=== PATIENT | female | born 1965 | race Caucasian/White ===

== ENCOUNTER 2018-03-05 21:57 | Emergency (ER) | payer BC, OTHER | END 2018-03-06 02:31 | disposition home or self-care (01) | LOC: FTE 03-06 02:31 | DX: S06.0X0A Concussion without loss of consciousness, initial encounter (principal); S10.93XA Contusion of unspecified part of neck, initial encounter; S40.011A Contusion of right shoulder, initial encounter; S40.012A Contusion of left shoulder, initial encounter; S60.211A Contusion of right wrist, initial encounter; I10 Essential (primary) hypertension; E11.9 Type 2 diabetes mellitus without complications; R07.9 Chest pain, unspecified; Y09 Assault by unspecified means; Y92.009 Unspecified place in unspecified non-institutional (private) residence as the place of occurrence of the external cause | CPT/HCPCS: 70450; 70486; 71046; 72125; 81025; 99285-25 ==

== ENCOUNTER 2018-06-29 16:22 | Emergency (ER) | payer BC ==
[2018-06-29] MEDS: KETOROLAC 30 MG INJ IM (17:28)
== END 2018-06-29 18:56 | disposition home or self-care (01) ==
LOC: FTE 16:22
DX: R51 Headache (principal); I10 Essential (primary) hypertension; E11.9 Type 2 diabetes mellitus without complications; Z79.84 Long term (current) use of oral hypoglycemic drugs
CPT/HCPCS: 70450; 81025; 82962; 96372; 99285-25

== ENCOUNTER 2018-07-26 08:34 | Emergency (ER) | payer BC ==
[2018-07-26] MEDS: SOD CHLORIDE 0.9% 1,000 ML IV (09:05)
[2018-07-26 09:12] LABS: ADD MAN DIFF? NO
[2018-07-26 09:13] LABS: BASOPHILS % 0.7 % (0.0-2.0); EOSINOPHILS # 0.1 10^3/ul (0.0-0.5); EOSINOPHILS % 1.8 % (0.0-7.0); HEMATOCRIT 38.8 % (37.0-47.0); HEMOGLOBIN 13.3 g/dl (12.0-16.0); LYMPHOCYTES # 1.9 10^3/ul (0.8-2.9); LYMPHOCYTES % 34.8 % (15.0-51.0); MEAN CORPUSCULAR HEMOGLOBIN 30.4 pg (29.0-33.0); MEAN CORPUSCULAR HGB CONC 34.3 g/dl (32.0-37.0); MEAN CORPUSCULAR VOLUME 88.6 fl (82.0-101.0); MEAN PLATELET VOLUME 11.4 fl (7.4-10.4); MONOCYTE # 0.4 10^3/ul (0.3-0.9); NEUTROPHILS % 54.3 % (39.0-77.0); PLATELET COUNT 220 10^3/UL (140-415); RED BLOOD COUNT 4.38 10^6/ul (4.20-5.40)
[2018-07-26 09:13] LABS: WHITE BLOOD COUNT 5.5 10^3/ul (4.8-10.8)
[2018-07-26 09:18] LABS: ADD UMIC YES; UR ASCORBIC ACID NEGATIVE (NEGATIVE); UR BILIRUBIN (Dip) NEGATIVE (NEGATIVE); UR BLOOD (Dip) 1+ mg/dL (NEGATIVE); UR CLARITY CLEAR (CLEAR); UR COLOR YELLOW (YELLOW); UR GLUCOSE (Dip) 3+ mg/dL (NEGATIVE); UR KETONES (Dip) TRACE mg/dL (NEGATIVE); UR LEUKOCYTE ESTERASE (Dip) NEGATIVE Leu/ul (NEGATIVE); UR NITRITE (Dip) NEGATIVE (NEGATIVE); UR RBC 2 /HPF (0-5); UR SPECIFIC GRAVITY (Dip) 1.032 (1.003-1.030); UR SQUAMOUS EPITHELIAL CELL FEW /HPF (FEW); UR TOTAL PROTEIN (Dip) NEGATIVE (NEGATIVE); UR UROBILINOGEN (Dip) NEGATIVE (NEGATIVE); UR WBC 8 /HPF (0-5)
[2018-07-26 09:40] LABS: ANION GAP 14 (8-16); BLOOD UREA NITROGEN 12 mg/dl (7-20); CALCIUM 9.2 mg/dl (8.4-10.2); CARBON DIOXIDE 25 mmol/L (21-31); CHLORIDE 101 mmol/L (97-110); CREATININE 0.61 mg/dl (0.44-1.00); GLUCOSE 325 mg/dl (70-220); SODIUM 136 mmol/L (135-144)
[2018-07-26] MEDS: INSULIN ASPART [NOVOLOG] 3 ML PEN SC (10:56)
[2018-07-26 11:02] LABS: TROPONIN-I < 0.012 ng/ml (0.000-0.120)
[2018-07-26] MEDS: IBUPROFEN 600 MG TAB PO (12:06)
== END 2018-07-26 12:31 | disposition home or self-care (01) ==
LOC: E/R 08:34
DX: E11.65 Type 2 diabetes mellitus with hyperglycemia (principal); R00.2 Palpitations; Z79.4 Long term (current) use of insulin
CPT/HCPCS: 36415; 80048; 81001; 82962; 84484; 85025; 93005; 96372; 99284-25

== ENCOUNTER 2018-12-28 23:17 | Emergency (ER) | payer SELFPAY, BC | END 2018-12-29 03:14 | disposition left against medical advice (07) | LOC: E/R 23:17 | DX: Z53.21 Procedure and treatment not carried out due to patient leaving prior to being seen by health care provider (principal) | CPT/HCPCS: 82962 ==

== ENCOUNTER 2019-03-03 11:33 | Emergency (ER) | payer BC ==
[2019-03-03] MEDS: LORAZEPAM 0.5 MG TAB PO (12:39)
[2019-03-03 13:26] LABS: TROPONIN-I < 0.012 ng/ml (0.000-0.120)
== END 2019-03-03 14:32 | disposition home or self-care (01) ==
LOC: E/R 11:33
DX: S16.1XXA Strain of muscle, fascia and tendon at neck level, initial encounter (principal); E11.9 Type 2 diabetes mellitus without complications; R07.9 Chest pain, unspecified; R51 Headache; Y04.0XXA Assault by unarmed brawl or fight, initial encounter; Z79.4 Long term (current) use of insulin
CPT/HCPCS: 36415; 70450; 71045; 72125; 84484; 93005; 99285-25

== ENCOUNTER 2019-04-06 10:50 | Observation (INO) | payer BC ==
[2019-04-06 11:26] LABS: ADD MAN DIFF? NO
[2019-04-06] MEDS: LORAZEPAM 0.5 MG TAB PO (11:29)
[2019-04-06 11:38] LABS: WHITE BLOOD COUNT 6.6 10^3/ul (4.8-10.8)
[2019-04-06 11:38] LABS: BASOPHILS % 0.6 % (0.0-2.0); EOSINOPHILS # 0.1 10^3/ul (0.0-0.5); EOSINOPHILS % 1.1 % (0.0-7.0); HEMATOCRIT 38.7 % (37.0-47.0); HEMOGLOBIN 13.5 g/dl (12.0-16.0); LYMPHOCYTES % 30.8 % (15.0-51.0); MEAN CORPUSCULAR HEMOGLOBIN 30.2 pg (29.0-33.0); MEAN CORPUSCULAR HGB CONC 34.9 g/dl (32.0-37.0); MEAN CORPUSCULAR VOLUME 86.6 fl (82.0-101.0); MEAN PLATELET VOLUME 11.2 fl (7.4-10.4); MONOCYTE # 0.5 10^3/ul (0.3-0.9); MONOCYTES % 7.1 % (0.0-11.0); NEUTROPHILS % 60.1 % (39.0-77.0); PLATELET COUNT 242 10^3/UL (140-415); RED BLOOD COUNT 4.47 10^6/ul (4.20-5.40); RED CELL DISTRIBUTION WIDTH 11.7 % (11.5-14.5)
[2019-04-06 11:57] LABS: ANION GAP 11 (5-13); BLOOD UREA NITROGEN 12 mg/dl (7-20); CALCIUM 8.8 mg/dl (8.4-10.2); CARBON DIOXIDE 25 mmol/L (21-31); CHLORIDE 98 mmol/L (97-110); CREATININE 0.64 mg/dl (0.44-1.00); Estimated GFR > 60 mL/min (>60); GLUCOSE 398 mg/dl (70-220); POTASSIUM 4.5 mmol/L (3.5-5.1); SODIUM 134 mmol/L (135-144)
[2019-04-06 12:09] LABS: TROPONIN-I < 0.012 ng/ml (0.000-0.120)
[2019-04-06] MEDS ORDERED: ONDANSETRON 4 MG INJ IV (13:30)
[2019-04-06] MEDS ORDERED: ACETAMINOPHEN 325 MG TAB PO (13:30)
[2019-04-06] MEDS ORDERED: ALBUTEROL/IPRATROPIUM (NEB) 3 ML AMP HHN (14:30)
[2019-04-06] MEDS ORDERED: NACL 0.9% 3 ML SYG IV (14:30)
[2019-04-06] MEDS ORDERED: morphine 2 MG INJ IV (14:30)
[2019-04-06] MEDS ORDERED: LORAZEPAM 2 MG INJ IV (14:30)
[2019-04-06] MEDS ORDERED: NITROGLYCERIN (SL) 0.4 MG TAB SL (14:30)
[2019-04-06] MEDS ORDERED: DEXTROSE 50% 50 ML SYRINGE IV ×3 (14:30→15:00)
[2019-04-06] MEDS ORDERED: hydrALAzine 20 MG INJ IV (14:30)
[2019-04-06 14:48] LABS: FREE T4 (FREE THYROXINE) 0.91 ng/dl (0.64-1.79)
[2019-04-06] MEDS ORDERED: GLUCOSE GEL 15 GRAM TUBE BUCCAL (15:00)
[2019-04-06] MEDS ORDERED: GLUCOSE GEL 15 GRAM TUBE PO ×2 (15:00)
[2019-04-06] MEDS ORDERED: GLUCAGON 1 MG INJ IM (15:00)
[2019-04-06] MEDS: INSULIN REGULAR, HUMAN 100 UNIT/1 ML 3ML VIAL IVP (15:06)
[2019-04-06] MEDS: SOD CHLORIDE 0.45% 1,000 ML IV (15:09)
[2019-04-06] MEDS: INSULIN REGULAR, HUMAN 100 UNIT/1 ML 3ML VIAL SC (15:12)
[2019-04-06 15:45] LABS: HEMOGLOBIN A1C 12.1 % (0-5.9)
[2019-04-06] MEDS: INSULIN ASPART [NOVOLOG] 3 ML PEN SC ×2 (16:43→21:00)
[2019-04-06 17:56] LABS: CREATINE KINASE 50 IU/L (23-200)
[2019-04-06 18:08] LABS: CK INDEX 0.6; CK-MB 0.29 ng/ml (0.0-2.4); TROPONIN-I < 0.012 ng/ml (0.000-0.120)
[2019-04-06] MEDS: INSULIN GLARGINE [LANTus] (100 UNITS/ML) SYG SC (21:00)
[2019-04-06] MEDS: LATANOPROST 0.005% 2.5 ML OPH BOTH EYES (21:45)
[2019-04-06] MEDS: GABAPENTIN 300 MG CAP PO (21:45)
[2019-04-06] MEDS: HEPARIN 5,000 UNIT/1 ML VIAL SC (21:47)
[2019-04-06 23:57] LABS: CREATINE KINASE 51 IU/L (23-200)
[2019-04-07 00:07] LABS: CK INDEX 0.6; CK-MB 0.31 ng/ml (0.0-2.4); TROPONIN-I < 0.012 ng/ml (0.000-0.120)
[2019-04-07] MEDS: HYDROCODONE/APAP (5/325) TAB PO ×2 (01:14→07:41)
[2019-04-07] MEDS: ACCU-CHEK XX ×3 (02:00→05:09)
[2019-04-07] MEDS: INSULIN GLARGINE [LANTus] (100 UNITS/ML) SYG SC ×2 (02:58→20:07)
[2019-04-07] MEDS: INSULIN ASPART [NOVOLOG] 3 ML PEN SC ×8 (03:00→20:06)
[2019-04-07] MEDS: SOD CHLORIDE 0.45% 1,000 ML IV ×2 (03:39→17:08)
[2019-04-07] MEDS: PANTOPRAZOLE (EC) 40 MG TAB PO (05:05)
[2019-04-07 05:33] LABS: ADD MAN DIFF? NO
[2019-04-07 05:35] LABS: WHITE BLOOD COUNT 8.7 10^3/ul (4.8-10.8)
[2019-04-07 05:35] LABS: BASOPHILS % 0.2 % (0.0-2.0); EOSINOPHILS # 0.1 10^3/ul (0.0-0.5); EOSINOPHILS % 1.1 % (0.0-7.0); HEMATOCRIT 38.4 % (37.0-47.0); HEMOGLOBIN 13.4 g/dl (12.0-16.0); LYMPHOCYTES # 3.1 10^3/ul (0.8-2.9); LYMPHOCYTES % 36.1 % (15.0-51.0); MEAN CORPUSCULAR HEMOGLOBIN 30.5 pg (29.0-33.0); MEAN CORPUSCULAR HGB CONC 34.9 g/dl (32.0-37.0); MEAN CORPUSCULAR VOLUME 87.5 fl (82.0-101.0); MONOCYTE # 0.7 10^3/ul (0.3-0.9); NEUTROPHIL # 4.7 10^3/ul (1.6-7.5); NEUTROPHILS % 54.4 % (39.0-77.0); PLATELET COUNT 245 10^3/UL (140-415); RED BLOOD COUNT 4.39 10^6/ul (4.20-5.40)
[2019-04-07 06:30] LABS: CHOLESTEROL 227 mg/dl (100-200)
[2019-04-07 06:30] LABS: CHOL/HDL RATIO 8.7 RATIO; HDL CHOLESTEROL 26 mg/dl (37-92)
[2019-04-07 06:45] LABS: TRIGLYCERIDES 1048 mg/dl (0-149)
[2019-04-07 06:46] LABS: ANION GAP 10 (5-13); BLOOD UREA NITROGEN 15 mg/dl (7-20); CALCIUM 8.6 mg/dl (8.4-10.2); CARBON DIOXIDE 24 mmol/L (21-31); CHLORIDE 101 mmol/L (97-110); CREATININE 0.53 mg/dl (0.44-1.00); Estimated GFR > 60 mL/min (>60); GLUCOSE 198 mg/dl (70-220); MAGNESIUM 1.7 mg/dl (1.7-2.5); PHOSPHORUS 3.8 mg/dl (2.5-4.9); POTASSIUM 3.9 mmol/L (3.5-5.1); SODIUM 135 mmol/L (135-144)
[2019-04-07] MEDS: ONDANSETRON 4 MG INJ IV (08:35)
[2019-04-07] MEDS: GABAPENTIN 300 MG CAP PO ×3 (08:38→20:23)
[2019-04-07] MEDS: ASPIRIN (EC) 81 MG TAB PO (08:38)
[2019-04-07] MEDS: HEPARIN 5,000 UNIT/1 ML VIAL SC ×2 (08:46→20:29)
[2019-04-07] MEDS ORDERED: ASPIRIN (EC) 81 MG TAB PO (09:00)
[2019-04-07] MEDS: ACETAMINOPHEN 325 MG TAB PO ×2 (10:50→22:56)
[2019-04-07] MEDS: ATORVASTATIN 40 MG TAB PO (11:53)
[2019-04-07] MEDS: LATANOPROST 0.005% 2.5 ML OPH BOTH EYES (21:24)
[2019-04-08] MEDS: MAGNESIUM HYDROXIDE 30ML CUP PO (01:53)
[2019-04-08] MEDS: ACCU-CHEK XX (02:00)
[2019-04-08] MEDS: ALPRAZOLAM 0.5 MG TAB PO (03:22)
[2019-04-08] MEDS: PANTOPRAZOLE (EC) 40 MG TAB PO (06:06)
[2019-04-08] MEDS: SOD CHLORIDE 0.45% 1,000 ML IV (06:10)
[2019-04-08 06:18] LABS: ADD MAN DIFF? NO; BASOPHILS % 0.2 % (0.0-2.0); EOSINOPHILS # 0.1 10^3/ul (0.0-0.5); EOSINOPHILS % 1.6 % (0.0-7.0); HEMATOCRIT 37.2 % (37.0-47.0); HEMOGLOBIN 12.9 g/dl (12.0-16.0); LYMPHOCYTES # 3.1 10^3/ul (0.8-2.9); LYMPHOCYTES % 37.8 % (15.0-51.0); MEAN CORPUSCULAR HEMOGLOBIN 30.3 pg (29.0-33.0); MEAN CORPUSCULAR HGB CONC 34.7 g/dl (32.0-37.0); MEAN CORPUSCULAR VOLUME 87.3 fl (82.0-101.0); MEAN PLATELET VOLUME 11.2 fl (7.4-10.4); MONOCYTE # 0.6 10^3/ul (0.3-0.9); MONOCYTES % 7.5 % (0.0-11.0); NEUTROPHIL # 4.3 10^3/ul (1.6-7.5); NEUTROPHILS % 52.5 % (39.0-77.0); PLATELET COUNT 217 10^3/UL (140-415); RED BLOOD COUNT 4.26 10^6/ul (4.20-5.40); RED CELL DISTRIBUTION WIDTH 12.1 % (11.5-14.5)
[2019-04-08 06:18] LABS: WHITE BLOOD COUNT 8.2 10^3/ul (4.8-10.8)
[2019-04-08 07:05] LABS: ANION GAP 6 (5-13); BLOOD UREA NITROGEN 10 mg/dl (7-20); CALCIUM 8.2 mg/dl (8.4-10.2); CARBON DIOXIDE 28 mmol/L (21-31); CHLORIDE 101 mmol/L (97-110); CREATININE 0.65 mg/dl (0.44-1.00); Estimated GFR > 60 mL/min (>60); GLUCOSE 274 mg/dl (70-220); POTASSIUM 4.3 mmol/L (3.5-5.1); SODIUM 135 mmol/L (135-144)
[2019-04-08] MEDS: DOCUSATE SODIUM 100 MG CAP PO (08:04)
[2019-04-08] MEDS: INSULIN ASPART [NOVOLOG] 3 ML PEN SC ×4 (08:07→12:00)
[2019-04-08] MEDS: ATORVASTATIN 40 MG TAB PO (08:58)
[2019-04-08] MEDS: ASPIRIN (EC) 81 MG TAB PO (08:58)
[2019-04-08] MEDS: GABAPENTIN 300 MG CAP PO ×2 (08:58→12:47)
[2019-04-08] MEDS: HEPARIN 5,000 UNIT/1 ML VIAL SC (09:05)
== END 2019-04-08 14:26 | disposition home or self-care (01) ==
LOC: E/R 10:50 → 6WM 13:21
DX: R07.89 Other chest pain (principal); R42 Dizziness and giddiness; E78.00 Pure hypercholesterolemia, unspecified; E11.9 Type 2 diabetes mellitus without complications; Z79.4 Long term (current) use of insulin; Z79.82 Long term (current) use of aspirin
CPT/HCPCS: 36415; 71045; 80048; 80061; 82550; 82553; 82962; 83036; 83735; 84100; 84439; 84443; 84484; 85025; 92610; 93005; 93306; 97161; 99285-25; G0378